=== PATIENT | female | born 1965 | race Caucasian/White ===

== ENCOUNTER → 2021-07-04 12:23 | Outpatient (CLI) | payer OTHER, SELFPAY ==
--- NOTE | 2021-07-04 12:27 | DI.US.S_ITS ---
PROCEDURE: US PELVIC COMPLETE INDICATIONS: LEFT PELVIC PAIN; HISTORY OVARIAN CYSTS TECHNIQUE: Real-time scanning was performed of the pelvic organs, with image documentation. Additional endovaginal scanning was necessary due to incomplete visualization of the adnexal and endometrial structures by transabdominal scanning. COMPARISON: None. FINDINGS: Uterus: Surgically absent. Ovaries: Not well seen sonographically Other: No pathologic free abdominal or pelvic fluid. IMPRESSION: Status post hysterectomy Neither ovary well visualized sonographically. No gross adnexal mass identified. Dictated by: Jerzy Thomas M.D. on 07/04/2021 at 15:40 Approved by: Jerzy Thomas M.D. on 07/04/2021 at 15:42
== END ==
PROVIDERS: PCP Family Medicine; Referring Provider Obstetrics & Gynecology; Visit Provider Obstetrics & Gynecology
DX: Z87.42 Personal history of other diseases of the female genital tract; R10.2 Pelvic and perineal pain; Z90.710 Acquired absence of both cervix and uterus
CPT/HCPCS: 76830; 76856

== ENCOUNTER → 2021-12-02 14:12 | Outpatient (CLI) | payer OTHER, SELFPAY ==
[2021-12-02 16:30] LABS: BUN Creatinine Ratio 21.6 (6-22); Blood Urea Nitrogen 16 mg/dL (7-17); Calcium 9.3 mg/dL (8.4-10.2); Carbon Dioxide 30 mmol/L (22-32); Chloride 103 mmol/L (98-107); Estimated Glomerular Filt Rate > 60.0 mL/min (>60); Glucose 139 mg/dL (70-100); HEMOLYSIS < 15 (0-50); Potassium 4.6 mmol/L (3.4-5.1); Sodium 141 mmol/L (137-145)
== END ==
PROVIDERS: PCP Internal Medicine; Referring Provider Urology; Visit Provider Urology
DX: N20.0 Calculus of kidney (principal); N39.0 Urinary tract infection, site not specified
CPT/HCPCS: 36415; 80048

== ENCOUNTER → 2021-12-03 07:06 | Outpatient (CLI) | payer OTHER, SELFPAY ==
--- NOTE | 2021-12-03 07:08 | DI.CT.S_ITS ---
PROCEDURE: CT ABDOMEN PELVIS WO/W CON INDICATIONS: Kidney stone/recurrent infections TECHNIQUE: Optional 5 mm thick noncontrast images acquired from the diaphragm to the symphysis pubis. After the administration of intravenous contrast, 5 mm thick images acquired from the diaphragm to the symphysis pubis after a 10-minute delay. 2 mm thick coronal and sagittal reformats were then performed of the kidneys and ureters. For radiation dose reduction, the following was used: automated exposure control, adjustment of mA and/or kV according to patient size. COMPARISON: [facility], , PELVIC COMPLETE, 07/04/2021, 12:47. FINDINGS: Image quality: Excellent. Lung bases: Lung bases are clear. Heart size is mildly prominent. Urinary system: Both kidneys are normal in size, without hydronephrosis. There is a 7 mm left inferior renal pole calcification, Hounsfield units 642. No perinephric fat stranding. There is normal bilateral renal enhancement. Renal calyces appear normal in morphology when filled with contrast. Opacified portions of both ureters demonstrate normal caliber. Bladder wall thickness is normal. No calcified bladder stones. Other solid organs: Liver is normal in size and enhancement. Gallbladder is unremarkable . Biliary system is non dilated. Pancreas enhances normally. Spleen is normal in size and enhancement. No adrenal nodules. Mild hiatal hernia is present. There is nonspecific distal esophageal circumferential thickening. Peritoneum and bowel: Bowel loops demonstrate normal wall thickness and caliber. No free fluid or air. Prominent colonic stool is present. Appendix is normal. Nodes and vessels: No retroperitoneal or mesenteric adenopathy by size criteria. Aorta and inferior vena cava are normal in size. Abdominal wall: No ventral hernias. Pelvis: No pathologic free pelvic fluid. No inguinal hernias or adenopathy. Bones: No suspicious bony lesions. No vertebral body compression fractures. IMPRESSION: Nonobstructing left renal calculus. No focal abnormal renal, ureteral or bladder masses. Dictated by: Nikkie Veliz M.D. on 12/03/2021 at 15:45 Approved by: Nikkie Veliz M.D. on 12/03/2021 at 15:52
== END ==
PROVIDERS: PCP Internal Medicine; Referring Provider Urology; Visit Provider Urology
DX: N20.0 Calculus of kidney (principal); N39.0 Urinary tract infection, site not specified
CPT/HCPCS: 74178; Q9967

== ENCOUNTER → 2021-12-12 12:49 | Outpatient (CLI) | payer OTHER, SELFPAY ==
[2021-12-12 13:40] LABS: Appearance Urine UA SL CLOUDY; Bilirubin Urine UA NEGATIVE (NEGATIVE); Color Urine UA YELLOW; Glucose Urine UA NEGATIVE (Negative); Ketones Urine UA NEGATIVE (NEGATIVE); Leukocyte Esterase Urine UA TRACE (NEGATIVE); Nitrite Urine UA POSITIVE (Negative); Occult Blood Urine UA 2+ (Negative); Protein Urine UA NEGATIVE (Negative); Urobilinogen Urine UA 0.2 E.U./dL (0.2)
[2021-12-12 14:25] LABS: RBC Urine None Seen (0-5/HPF); Squamous Epithelial Cell Urine 5-10 /HPF (0-5/HPF); WBC Urine 0-1/HPF (0-5/HPF)
[2021-12-12 14:26] LABS: Bacteria Urine None Seen; Culture Indicated Urine Specimen Cultured
== END ==
PROVIDERS: PCP Internal Medicine; Referring Provider Urology; Visit Provider Urology
DX: R30.0 Dysuria (principal)
CPT/HCPCS: 81001; 87086

== ENCOUNTER → 2022-01-10 13:53 | Outpatient (CLI) | payer OTHER, SELFPAY | PROVIDERS: PCP Internal Medicine; Referring Provider Obstetrics & Gynecology; Visit Provider Obstetrics & Gynecology | DX: N39.0 Urinary tract infection, site not specified (principal) | CPT/HCPCS: 87086 ==

== ENCOUNTER → 2022-01-17 12:09 | Outpatient (CLI) | payer OTHER, SELFPAY | PROVIDERS: PCP Internal Medicine; Visit Provider Obstetrics & Gynecology | DX: N39.0 Urinary tract infection, site not specified (principal) | CPT/HCPCS: 87086 ==

== ENCOUNTER → 2022-02-07 10:28 | Outpatient (CLI) | payer OTHER, SELFPAY ==
--- NOTE | 2022-02-07 | DI.MG.S_ITS ---
BILATERAL DIGITAL SCREENING MAMMOGRAM 3D/2D WITH CAD: 02/07/2022 CLINICAL: Routine screening. Family history of breast cancer. Comparison is made to exams dated: 02/11/2021 mammogram, 02/15/2020 mammogram, and 03/04/2019 mammogram - outside facility. The tissue of both breasts is heterogeneously dense. This may lower the sensitivity of mammography. Current study was also evaluated with a Computer Aided Detection (CAD) system. No significant masses, calcifications, or other findings are seen in either breast. There has been no significant interval change. IMPRESSION: NEGATIVE There is no mammographic evidence of malignancy. A 1 year screening mammogram is recommended. This exam was interpreted at Station ID: [id number]. NOTE: For mammograms, a report in lay terms will be sent to the patient. Approximately 15% of breast malignancies will not be visualized mammographically. In the management of a palpable breast mass, a negative mammogram must not discourage biopsy of a clinically suspicious lesion. Electronically Signed By: Harini tariq/sun:02/07/2022 12:41:47 letter sent: Normal Exam ACR BI-RADS Category 1: Negative 3341F
== END ==
PROVIDERS: PCP Internal Medicine; Referring Provider Internal Medicine; Visit Provider Internal Medicine
DX: Z12.31 Encounter for screening mammogram for malignant neoplasm of breast (principal); Z80.3 Family history of malignant neoplasm of breast
CPT/HCPCS: 77063; 77067

== ENCOUNTER → 2022-02-25 13:28 | Outpatient (CLI) | payer OTHER, SELFPAY ==
[2022-02-25 14:01] LABS: Appearance Urine UA CLEAR; Bilirubin Urine UA NEGATIVE (NEGATIVE); Color Urine UA YELLOW; Glucose Urine UA NEGATIVE (Negative); Ketones Urine UA NEGATIVE (NEGATIVE); Leukocyte Esterase Urine UA NEGATIVE (NEGATIVE); Nitrite Urine UA NEGATIVE (Negative); Occult Blood Urine UA NEGATIVE (Negative); Protein Urine UA NEGATIVE (Negative); Urobilinogen Urine UA 0.2 E.U./dL (0.2)
[2022-02-25 14:34] LABS: pH Urine UA 5.5 (4.5-8.0)
[2022-02-25 14:41] LABS: Bacteria Urine Many (>30); Culture Indicated Urine Cult Not Indicated; RBC Urine None Seen (0-5/HPF); Squamous Epithelial Cell Urine 10-30 /HPF (0-5/HPF); WBC Urine 1-5/HPF (0-5/HPF)
== END ==
PROVIDERS: PCP Internal Medicine; Referring Provider Urology; Visit Provider Urology
DX: R30.0 Dysuria (principal)
CPT/HCPCS: 81001

== ENCOUNTER 2022-04-02 15:20 | Emergency (ER) | payer OTHER, SELFPAY ==
[2022-04-02 15:29] VITALS: BP 152/84; PULSE 98; RESP 18; TEMP 36.9; O2SAT 98; BMI 27.8
--- NOTE | 2022-04-02 15:34 | DI.RAD.S_ITS ---
PROCEDURE: XR SHOULDER LT MIN 2V INDICATIONS: injury TECHNIQUE: 3 views of the shoulder were acquired. COMPARISON: None. FINDINGS: Bones: No fractures or dislocations. No suspicious bony lesions. Visualized ribs appear intact. Soft tissues: No suspicious soft tissue calcifications. IMPRESSION: No acute radiographic abnormality. Consider further evaluation with cross-sectional imaging if there is high concern for internal derangement. Dictated by: Josh Vazquez M.D. on 04/02/2022 at 15:59 Approved by: Josh Vazquez M.D. on 04/02/2022 at 15:59
--- NOTE | 2022-04-02 15:34 | DI.RAD.S_ITS ---
PROCEDURE: XR CLAVICLE LT INDICATIONS: injury TECHNIQUE: 2 views of the clavicle were acquired. COMPARISON: None. FINDINGS: Bones: No fractures or dislocations. No suspicious bony lesions. Soft tissues: No suspicious soft tissue calcifications. IMPRESSION: No acute radiographic abnormality. Dictated by: Josh Vazquez M.D. on 04/02/2022 at 15:58 Approved by: Josh Vazquez M.D. on 04/02/2022 at 15:58
--- NOTE | 2022-04-02 16:40 | ED_ITS ---
HPI - Extremity Injury (Upper) <Kerry Pike, [facility] - Last Filed: 04/02/22 16:45> General Chief Complaint: Extremity Injury, Upper Stated Complaint: Hurt shoulder Time Seen by Provider: 04/02/22 16:11 Source: patient Mode of arrival: Ambulatory History of Present Illness HPI narrative: This is a 56-year-old female presents to the emergency department complaining of left shoulder muscular pain after she helped move a large patient at work earlier today. Patient states that she has shortening of her muscle and pain with movement of her left shoulder, she declines needing any pain medication because she states she is driving home. She denies any changes to her range of motion of her shoulder or elbow, states that she had immediate warm rash of numbness across her neck and shoulder when this happened and now states it is just sore to touch. Related Data Home Medications Medication Instructions Recorded Confirmed cyclobenzaprine 10 mg tablet 10 mg PO BEDTIME 08/09/21 03/21/22 Previous Rx's Medication Instructions Recorded CMP Progesterone 100mg Capsule 1 cap PO BEDTIME #90 caps 12/19/21 estradiol 0.01% (0.1 mg/gram) 1 g vaginal 3XW #42.5 grams 12/19/21 vaginal cream CMP Testosterone/DHEA 05/25 mg See Rx Instructions .Route 12/20/21 Blanca .COMPLEX #90 troches estradiol 0.5 mg tablet See Rx Instructions .Route 01/06/22 .COMPLEX #30 tabs clobetasol 0.05 % topical cream 1 applic topical BID 2 weeks #30 03/22/22 grams nitrofurantoin 100 mg PO DAILY #30 caps 03/22/22 monohydrate/macrocrystals 100 mg capsule (Macrobid) lidocaine 5 % topical patch 1 patch topical DAILY PRN pain #15 04/02/22 (Lidoderm) ea methocarbamol 500 mg tablet 500 mg PO TID PRN muscle spasm #14 04/02/22 tabs Allergies Allergy/AdvReac Type Severity Reaction Status Date / Time butorphanol [From Stadol] Allergy Severe full body Verified 03/21/22 17:01 swelling measles, mumps, and rubella Allergy Severe Facial and Verified 03/21/22 17:01 vaccine throat swelling aspirin Allergy Unknown was in Verified 03/21/22 17:01 the hospital at age 10 meperidine [From Demerol] Allergy Unknown was in Verified 03/21/22 17:01 the hospital at age 10 Penicillins Allergy Unknown was in Verified 03/21/22 17:01 the hospital at age 10 Sulfa (Sulfonamide Allergy Unknown was in Verified 03/21/22 17:01 Antibiotics) the hospital at age 10 Influenza Virus Vaccines AdvReac Intermediate Verified 03/21/22 17:01 Review of Systems <EKTA Van - Last Filed: 04/02/22 16:45> Review of Systems Narrative: General: denies fever, chills, malaise, sweats, fatigue Head/Neck: denies headache, neck pain, dizziness Eyes: denies visual changes, eye pain Cardio: denies chest pain, palpitations, edema Respiratory: denies dyspnea, cough, orthopnea GI: denies abdominal pain, nausea, vomiting, or diarrhea : denies dysuria, hematuria, urinary retention, frequency or incontinence MSK: denies joint pain, muscle weakness Skin: denies rash, itching, skin lesions or other Neuro: denies numbness, tingling Patient History <EKTA Van - Last Filed: 04/02/22 16:45> Medical History Abnormal Pap smear of cervix (~2005) Frequent UTI (~2005) Headache Hematuria (~2005) Kidney stones Lupus (~2008) Migraines Vertigo Vestibular neuritis (~2020) Surgical History Anesthesia History of hysterectomy (~2005) History of lithotripsy History of throat surgery (~2007) Status post breast reduction (~2012) Family History Father Diabetes mellitus History of heart disease Hypertension Hyperlipidemia Sister Breast cancer Grandmother Breast cancer Social History marital status: unmarried,single number of children: 2 Smoking Status: Never smoker alcohol intake: current (~1 drink per month ) substance use type: does not use Smoking Status: Never smoker alcohol intake frequency: holidays/special occasions only Substance Use Type: does not use Exam <EKTA Van - Last Filed: 04/02/22 16:45> Narrative Exam Narrative: Independently reviewed vitals signs and nursing notes. General: cooperative, comfortable, in no acute distress, well groomed Head: atraumatic, symmetrical facial expressions Neck: supple with full range of motion, no tenderness to cervical spine Eyes: equal round and reactive, EOMI, conjunctiva normal Nose: nares patent, no rhinorrhea Mouth/Throat: moist mucus membranes Cardiovascular: regular rate and rhythm, no peripheral edema, warm extremities Respiratory: normal effort, able to speak in complete sentences, no audible wheezing, stridor, or rales. No retractions or tachypnea. GI: abdomen soft, nontender to palpation, nondistended, no masses, no exquisite tenderness with exam, without guarding or rebound. MSK: moves all extremities, neurovascularly intact, no weakness, normal tone, full range of motion of left shoulder, tenderness to left trapezius with palpation, no sensation deficit into fingertips, patient placed in a sling for support, radial pulses 2+, neck with full range of motion. Skin: brisk capillary refill, no rash, no erythema Neuro: normal speech and cognition, A&O x3 Psych: mental status is grossly normal, congruent mood, normal affect, pleasant and cooperative Initial Vital Signs Initial Vital Signs: Vital Signs Temperature 98.5 F 04/02/22 15:29 Pulse Rate 98 H 04/02/22 15:29 Respiratory Rate 18 04/02/22 15:29 Blood Pressure 152/84 H 04/02/22 15:29 Pulse Oximetry 98 04/02/22 15:29 Oxygen Delivery Method 04/02/22 15:29 <Judith Vieyra DO - Last Filed: 04/07/22 03:42> Initial Vital Signs Initial Vital Signs: Vital Signs Temperature 98.5 F 04/02/22 15:29 Pulse Rate 98 H 04/02/22 15:29 Respiratory Rate 18 04/02/22 15:29 Blood Pressure 152/84 H 04/02/22 15:29 Pulse Oximetry 98 04/02/22 15:29 Oxygen Delivery Method 04/02/22 15:29 Course <EKTA Van - Last Filed: 04/02/22 16:45> Orders Ordered: Discontinued Medications Ketorolac Tromethamine (Ketorolac 30 Mg/Ml Vial) 15 mg IM NOW ONE Stop: 04/02/22 16:36 Last Admin: 04/02/22 16:42 Dose: 15 mg Documented By: ALEXANDRO Vital Signs Vital signs: Vital Signs - 8 hr 04/02/22 15:29 Temperature 98.5 F Pulse Rate 98 H Respiratory Rate 18 Blood Pressure 152/84 H Pulse Oximetry 98 Oxygen Delivery Method Room Air <Judith Vieyra DO - Last Filed: 04/07/22 03:42> Orders Ordered: Discontinued Medications Ketorolac Tromethamine (Ketorolac 30 Mg/Ml Vial) 15 mg IM NOW ONE Stop: 04/02/22 16:36 Last Admin: 04/02/22 16:42 Dose: 15 mg Documented By: ALEXANDRO Vital Signs Vital signs: Vital Signs - 8 hr 04/02/22 15:29 Temperature 98.5 F Pulse Rate 98 H Respiratory Rate 18 Blood Pressure 152/84 H Pulse Oximetry 98 Oxygen Delivery Method Room Air MDM - Extremity Injury (Upper) <EKTA Van - Last Filed: 04/02/22 16:45> Imaging Data Extremity x-ray #1: Radiologist's Impression: PROCEDURE:? XR SHOULDER LT MIN 2V ? INDICATIONS:? injury ? TECHNIQUE:? 3 views of the shoulder were acquired.? ? COMPARISON:? None. ? FINDINGS:? ? Bones:? No fractures or dislocations.? No suspicious bony lesions.? Visualized ribs appear intact.? ? Soft tissues:? No suspicious soft tissue calcifications.? ? IMPRESSION:? No acute radiographic abnormality.? Consider further evaluation with cross-sectional imaging if there is high concern for internal derangement.? ? ? Dictated by: Josh Vazquez M.D. on 04/02/2022 at 15:59 ? ? Approved by: Josh Vazquez M.D. on 04/02/2022 at 15:59 ? Extremity x-ray #2: Radiologist's Impression: PROCEDURE:? XR CLAVICLE LT ? INDICATIONS:? injury ? TECHNIQUE:? 2 views of the clavicle were acquired.? ? COMPARISON:? None. ? FINDINGS:? ? Bones:? No fractures or dislocations.? No suspicious bony lesions.? ? Soft tissues:? No suspicious soft tissue calcifications.? ? IMPRESSION:? No acute radiographic abnormality.? ? ? Dictated by: Josh Vazquez M.D. on 04/02/2022 at 15:58 ? ? Approved by: Josh Vazquez M.D. on 04/02/2022 at 15:58 ? [facility] Narrative Medical decision making narrative: This is a pleasant 56-year-old female who presents to the emergency department after she felt left shoulder pain and numbness after moving a heavy patient at work earlier today. She has left-sided trapezius tenderness to palpation, x-ray of her left clavicle is negative for acute osseous abnormality or dislocation, x-ray of her left shoulder is negative for acute fracture or dislocation, no acute abnormality. Is most likely a muscle strain, patient had to drive home so she picked up her prescriptions after she left but was given Toradol in the emergency department and recommended to take the next day or 2 off of work if she still has pain. Encouraged her to ice, heat, use ibuprofen and Tylenol with a muscle relaxer to help treat her pain. She is also given a prescription of lidocaine patches, encouraged her to return to the emergency department she has worsening of this or changes to her range of motion but there does not appear to be any vascular or emergent injury that would need additional treatment at this time. Patient is appropriate and amenable to discharge home. Vital signs are stable on repeat examination is unremarkable. Patient has been informed of results. Patient has been given strict return to ER precautions for any new or worsening symptoms. Patient understands to follow up closely with outpatient providers as instructed. Patient understands plan and agrees to discharge home. All questions and concerns answered at this time. Discharge Plan Departure Patient Disposition: Home Clinical Impression: Strain of left trapezius muscle Qualifiers: Encounter type: initial encounter Qualified Code(s): S46.812A - Strain of other muscles, fascia and tendons at shoulder and upper arm level, left arm, initial encounter Instructions: DI for Muscle Strain Activity Restrictions/Additional Instructions: *You have been diagnosed with likely a trapezius muscle strain which attaches at the base of her skull, runs down your neck, in his a large triangle-shaped muscle on the left side of your shoulder. It causes pain with most head movement and can be quite uncomfortable. Please try not to get too stiff and stay lightly active throughout the day, practice gentle range of motion to help keep your muscles fluid and not allowing them to get too stiff and tight. You can try light manual massage, but please do not do any aggressive stretching or exertional activity. This may take 1-2 weeks to start getting better, try a topical modality of choice whether it is CBD, lidocaine patches, or Voltaren gel, all 3 will help a little bit. Try ibuprofen every 8 hours with food and water, Tylenol in addition to this if you need it. Take a muscle relaxer to help prevent spasm and worsening of this which can cause a headache, it might be helpful to wear your sling to help lift this up but I encourage you to take the sling off and practice gentle range of motion to help prevent your muscle from tightening up. *What to do: *Please continue to take your regular medications as directed. [ x] New medication prescriptions sent to your pharmacy: [ [facility]] [ ] New medication written as a paper prescription [ ] No new medications given *Please follow up with your primary care provider in 2-3 days, call for an appointment. Let them know you were seen in the Emergency Department and that we asked that you be seen for follow-up. We will electronically transmit a record of today's note if your PCP is in our system *If you do not have a primary care provider please contact [phone] to establish care with one of [facility] primary care providers. *Return to Emergency Department if you should have any new, worsening, or co ncerning symptoms, such as [fever greater than 101F, chills, worsening pain, persistent vomiting or other bothersome symptoms]. Prescriptions: New methocarbamol 500 mg tablet 500 mg PO TID PRN (Reason: muscle spasm) Qty: 14 0RF lidocaine [Lidoderm] 5 % adhesive patch,medicated 1 patch topical DAILY PRN (Reason: pain) Qty: 15 0RF Rx Instructions: leave on most painful area for up to 12 hrs No Action estradiol 0.01 % (0.1 mg/gram) cream 1 g vaginal 3XW Qty: 42.5 5RF Rx Instructions: Apply 1 g vaginally at bedtime 3 nights weekly ([facility]) CMP Progesterone 100mg Capsule 1 cap PO BEDTIME Qty: 90 3RF Rx Instructions: Take 1 capsule by mouth at bedtime. CMP Testosterone/DHEA 05/25 mg Blanca See Rx Instructions .ROUTE .COMPLEX Qty: 90 0RF Rx Instructions: Place 1 blanca under the tongue allow to dissolve each morning; estradiol 0.5 mg tablet See Rx Instructions .ROUTE .COMPLEX Qty: 30 10RF Dose Instruction: TAKE 1 TABLET BY MOUTH EVERY DAY Rx Instructions: TAKE 1 TABLET BY MOUTH EVERY DAY nitrofurantoin monohyd/m-cryst [Macrobid] 100 mg capsule 100 mg PO DAILY Qty: 30 12RF Rx Instructions: must administer with a meal/food clobetasol 0.05 % cream 1 applic topical BID 14 Days Qty: 30 6RF cyclobenzaprine 10 mg tablet 10 mg PO BEDTIME Referrals: Minh Munoz MD [Primary Care Provider] - Visit Report Forms: Patient Portal/API <Judith Viyera DO - Last Filed: 04/07/22 03:42> Cosign ED Attending Cosjohnnyature Attestation: I was immediately available in the department for consultation. Documentation has been reviewed.
[2022-04-02 16:42] VITALS: BP 140/75; PULSE 78; RESP 18; O2SAT 98
[2022-04-02] MEDS: KETOROLAC 30 MG/ML VIAL 15 MG IM (16:42)
== END 2022-04-02 16:42 | disposition home or self-care (01) ==
PROVIDERS: Emergency Provider Nurse Practitioner Critical Care Medicine; PCP Internal Medicine
DX: S46.812A Strain of other muscles, fascia and tendons at shoulder and upper arm level, left arm, initial encounter (principal); X50.9XXA Other and unspecified overexertion or strenuous movements or postures, initial encounter; Y93.F2 Activity, caregiving, lifting
CPT/HCPCS: 73000; 73030; 96372; 99283; J1885

== ENCOUNTER → 2022-05-13 15:12 | Outpatient (CLI) | payer OTHER, SELFPAY ==
[2022-05-13 20:57] LABS: Urine N gonorrhoeae NOT DETECTED
[2022-05-13 21:08] LABS: Urine Chlamydia NOT DETECTED
== END ==
PROVIDERS: PCP Internal Medicine; Visit Provider Obstetrics & Gynecology
DX: N39.0 Urinary tract infection, site not specified (principal); R30.0 Dysuria
CPT/HCPCS: 87086; 87491; 87591

== ENCOUNTER → 2022-05-15 11:17 | Outpatient (CLI) | payer OTHER, SELFPAY ==
[2022-05-16 16:48] LABS: Candida species Negative (Negative); Gardnerella vaginalis Positive (Negative); Trichomoas vaginalis Negative (Negative)
== END ==
PROVIDERS: PCP Internal Medicine; Visit Provider Physician Assistant Medical
DX: N89.8 Other specified noninflammatory disorders of vagina (principal); R10.2 Pelvic and perineal pain
CPT/HCPCS: 87480; 87510; 87660

== ENCOUNTER → 2022-05-15 15:34 | Outpatient (CLI) | payer OTHER, SELFPAY ==
[2022-05-15 17:24] LABS: Hepatitis B Surface Antigen NEGATIVE s/c (NEGATIVE)
[2022-05-15 17:39] LABS: HIV 1 & 2 Ab/Ag 4th Gen Combo NEGATIVE (NEGATIVE); Hep C Virus Ab w/Reflex Quant NEGATIVE s/c (NEGATIVE)
[2022-05-17 03:09] LABS: RPR Screen Non Reactive (Non Reactive)
== END ==
PROVIDERS: PCP Internal Medicine; Referring Provider Physician Assistant Medical; Visit Provider Physician Assistant Medical
DX: Z11.3 Encounter for screening for infections with a predominantly sexual mode of transmission (principal); N89.8 Other specified noninflammatory disorders of vagina; R10.2 Pelvic and perineal pain
CPT/HCPCS: 36415; 86592; 86803; 87340; 87389; 87480; 87510; 87660

== ENCOUNTER → 2022-08-06 14:42 | Outpatient (CLI) | payer OTHER, SELFPAY ==
[2022-08-06 20:29] LABS: Urine N gonorrhoeae NOT DETECTED
[2022-08-06 20:33] LABS: Urine Chlamydia NOT DETECTED
== END ==
PROVIDERS: PCP Internal Medicine; Referring Provider Obstetrics & Gynecology; Visit Provider Obstetrics & Gynecology
DX: Z11.3 Encounter for screening for infections with a predominantly sexual mode of transmission (principal)
CPT/HCPCS: 87491; 87591

== ENCOUNTER → 2022-08-07 07:42 | Outpatient (CLI) | payer OTHER, SELFPAY ==
[2022-08-07 16:38] LABS: HIV 1 & 2 Ab/Ag 4th Gen Combo NEGATIVE (NEGATIVE); Hepatitis B Surface Antigen NEGATIVE s/c (NEGATIVE)
[2022-08-08 07:36] LABS: RPR Screen Non Reactive (Non Reactive)
[2022-08-08 09:01] LABS: Hepatitis B Core AB w/Reflex Negative (Negative)
== END ==
PROVIDERS: Referring Provider Obstetrics & Gynecology; Visit Provider Obstetrics & Gynecology
DX: Z11.3 Encounter for screening for infections with a predominantly sexual mode of transmission (principal)
CPT/HCPCS: 36415; 86592; 86704; 87340; 87389

== ENCOUNTER → 2022-11-18 13:00 | Outpatient (CLI) | payer OTHER, SELFPAY ==
[2022-11-18 14:50] LABS: Appearance Urine UA CLEAR; Bilirubin Urine UA NEGATIVE (NEGATIVE); Color Urine UA YELLOW; Glucose Urine UA NEGATIVE (Negative); Ketones Urine UA NEGATIVE (NEGATIVE); Leukocyte Esterase Urine UA NEGATIVE (NEGATIVE); Nitrite Urine UA NEGATIVE (Negative); Occult Blood Urine UA NEGATIVE (Negative); Protein Urine UA NEGATIVE (Negative); Urobilinogen Urine UA 0.2 E.U./dL (0.2)
== END ==
PROVIDERS: Referring Provider Obstetrics & Gynecology; Visit Provider Obstetrics & Gynecology
DX: N39.0 Urinary tract infection, site not specified (principal)
CPT/HCPCS: 81003

== ENCOUNTER → 2023-02-27 07:14 | Outpatient (CLI) | payer OTHER, SELFPAY ==
--- NOTE | 2023-02-27 | DI.MG.S_ITS ---
BILATERAL DIGITAL SCREENING MAMMOGRAM 3D/2D WITH CAD: 02/27/2023 CLINICAL: Routine screening. Family history of breast cancer. Comparison is made to exams dated: 02/07/2022 mammogram - [facility], 02/11/2021 mammogram, 02/15/2020 mammogram, and 03/04/2019 mammogram - outside facility. Both breasts are heterogeneously dense, which may obscure small masses (category c / 51-75% glandular tissue). Current study was also evaluated with a Computer Aided Detection (CAD) system. No significant masses, calcifications, or other findings are seen in either breast. There has been no significant interval change. IMPRESSION: NEGATIVE There is no mammographic evidence of malignancy. A 1 year screening mammogram is recommended. Based on the Tyrer Cuzick model (a risk assessment model) the patient's lifetime risk is 10.8% and her 10 year risk is 3.9%. According to the ACR, ACS, and NCCN guidelines, an annual breast MRI exam along with mammogram is recommended if the patient's lifetime risk is 20% or greater. This exam was interpreted at Station ID: [id number]. NOTE: For mammograms, a report in lay terms will be sent to the patient. Approximately 15% of breast malignancies will not be visualized mammographically. In the management of a palpable breast mass, a negative mammogram must not discourage biopsy of a clinically suspicious lesion. Electronically Signed By: Merlin watters/sun:02/27/2023 09:24:17 letter sent: Normal Exam ACR BI-RADS Category 1: Negative [id number]
== END ==
PROVIDERS: Referring Provider Family Medicine; Visit Provider Family Medicine
DX: Z12.31 Encounter for screening mammogram for malignant neoplasm of breast (principal); Z80.3 Family history of malignant neoplasm of breast
CPT/HCPCS: 77063; 77067